=== PATIENT | female | born 1980 | race Caucasian/White ===

== ENCOUNTER 2017-08-20 18:18 | Emergency (ER) | payer BC ==
[2017-08-20] MEDS ORDERED: BENADRYL 50 MG/ML IV ONE (18:46)
[2017-08-20] MEDS ORDERED: Zofran 4 MG/2 ML VIAL IV ONE (18:46)
[2017-08-20] MEDS ORDERED: SUBLIMAZE 100 MCG/2 ML IV ONE (18:46)
[2017-08-20] MEDS ORDERED: SUBLIMAZE 100 MCG/2 ML ONE (18:58)
[2017-08-20] MEDS ORDERED: BENADRYL 50 MG/ML ONE (18:58)
[2017-08-20] MEDS ORDERED: Zofran 4 MG/2 ML VIAL ONE (18:58)
[2017-08-20] MEDS ORDERED: Sodium Chloride 0.9% 1000 ML 1,000 ML ONE (18:58)
[2017-08-20] MEDS ORDERED: Sodium Chloride 0.9% 1000 ML 1,000 ML IV SCH (19:00)
--- NOTE | 2017-08-20 19:00 | ERPHSYRPT ---
- History of Present Illness Time Seen by Provider: 08/20/17 18:45 Historian: patient Exam Limitations: clinical condition Patient Subjective Stated Complaint: RLQ PAIN FOR FOUR DAYS. DIARRHEA INTERMITTENTLY Triage Nursing Assessment: AMBULATED TO ROOM PER SELF. HOLDING RIGHT ABD. SKIN W/D, COLOR NORMAL, RESP EASY. ABD ROUND, SOFT, TENDER RLQ. HYPOACTIVE BOWEL SOUNDS THROUGHOUT. NO DIARRHEA AT PRESENT TIME. Physician History: PATIENT WITH A HISTORY OF PREVIOUS GASTRIC BYPASS, CHOLECYSTECTOMY, COMPLAINS OF WATERY DIARRHEA FOR 4 DAYS, ONSET OF RIGHT FLANK PAIN SINCE LAST NIGHT WHICH HAS PROGRESSED TO RIGHT LOWER ABDOMINAL PAIN, DENIES NAUSEA, EMESIS, FEVER, OR URINARY SYMPTOMS, DYSURIA, FREQUENCY, HEMATURIA. Timing/Duration: day(s) Activities at Onset: none Quality: sharpness, stabbing Abdominal Pain Onset Location: RLQ, flank Pain Radiation: no radiation Severity of Pain-Max: moderate Severity of Pain-Current: moderate Modifying Factors: Improves With: position Associated Symptoms: diarrhea Previous symptoms: no prior history Allergies/Adverse Reactions: No Known Drug Allergies Allergy (Unverified 08/20/17 18:48) Home Medications: KETOROLAC trometh 30 mg Inj [TORAdol 30 mg Injection] 30 mg IJ UD [History] Sertraline HCl 50 mg PO DAILY 08/20/17 [History] Sumatriptan Succinate [Imitrex] 100 mg PO UD 08/20/17 [History] Zonisamide 100 mg PO DAILY 08/20/17 [History] Hx Tetanus, Diphtheria Vaccination/Date Given: No Hx Influenza Vaccination/Date Given: Yes Hx Pneumococcal Vaccination/Date Given: No - Review of Systems Constitutional: No Fever, No Chills Eyes: No Symptoms Ears, Nose, & Throat: No Symptoms Respiratory: No Symptoms, No Cough, No Dyspnea Cardiac: No Chest Pain, No Edema, No Syncope Abdominal/Gastrointestinal: Abdominal Pain, Diarrhea, No Nausea, No Vomiting Genitourinary Symptoms: No Symptoms, Flank Pain, No Dysuria Musculoskeletal: No Symptoms, No Back Pain, No Neck Pain Skin: No Rash Neurological: No Dizziness, No Focal Weakness, No Sensory Changes Psychological: No Symptoms Endocrine: No Symptoms All Other Systems: Reviewed and Negative - Past Medical History Pertinent Past Medical History: Yes Neurological History: Migraines Psycho-Social History: Depression - Past Surgical History Past Surgical History: Yes Gastrointestinal: Cholecystectomy Female Surgical History: Section Other Surgical History: GASTRIC BYPASS - Social History Smoking Status: Never smoker Exposure to second hand smoke: No Drug Use: none Patient Lives Alone: No - Female History Hx Now: No - Nursing Vital Signs Nursing Vital Signs: Initial Vital Signs Temperature 98.9 F 08/20/17 18:27 Pulse Rate 80 08/20/17 18:27 Respiratory Rate 16 08/20/17 18:27 Blood Pressure 146/100 08/20/17 18:27 O2 Sat by Pulse Oximetry 100 08/20/17 18:27 Pain Scale Pain Intensity 8 - Physical Exam General Appearance: mild distress Eye Exam: PERRL/EOMI, eyes nml inspection Ears, Nose, Throat Exam: normal ENT inspection, pharynx normal, moist mucous membranes Neck Exam: normal inspection, non-tender, supple, full range of motion Respiratory Exam: normal breath sounds, lungs clear, No respiratory distress Cardiovascular Exam: regular rate/rhythm, normal heart sounds Gastrointestinal/Abdomen Exam: soft, normal bowel sounds, No tenderness (RIGHT LOWER QUAD TENDERNESS), No mass Back Exam: normal inspection, normal range of motion, CVA tenderness (RIGHT CVA TENDERNESS), No vertebral tenderness Extremity Exam: normal inspection, normal range of motion, pelvis stable Neurologic Exam: alert, oriented x 3, cooperative, normal mood/affect, nml cerebellar function, sensation nml, No motor deficits Skin Exam: normal color, warm, dry SpO2: 100 Oxygen Delivery: Room Air - CT Exams Abdomen/Pelvis CT Interpretation: Discussed w/radiologist, Normal Appendix (GASTRIC BYPASS , MODERATE DIFFUSE FECAL STASIS WITHOUT OBSTRUCTION) Ordered Tests: Active Orders 24 hr Category Date Time Status Clean Catch Urine Specimen STAT Care 08/20/17 18:46 Active IV Insertion STAT Care 08/20/17 18:46 Active ABDOMEN AND PELVIS W CONTRAST [CT] Stat Exams 08/20/17 18:46 Taken AMYLASE Stat Lab 08/20/17 18:50 Completed CBC W DIFF Stat Lab 08/20/17 18:50 Completed CMP Stat Lab 08/20/17 18:50 Completed HCG,QUALITATIVE URINE Stat Lab 08/20/17 18:50 Completed LIPASE Stat Lab 08/20/17 18:50 Completed UA W/RFX UR CULTURE Stat Lab 08/20/17 18:50 Completed Medication Summary Generic Name Dose Route Start Last Admin Trade Name Freq PRN Reason Stop Dose Admin Sodium Chloride 1,000 mls @ 500 mls/hr 08/20/17 19:00 08/20/17 21:24 Sodium Chloride 0.9% 1000 Ml IV 09/19/17 18:59 Infused .Q2H EVER Infusion Discontinued Medications Generic Name Dose Route Start Last Admin Trade Name Freq PRN Reason Stop Dose Admin Diphenhydramine HCl 25 mg 08/20/17 18:46 08/20/17 19:00 Benadryl 50 Mg/Ml IV 08/20/17 18:47 25 mg STAT ONE Administration Diphenhydramine HCl Confirm 08/20/17 18:58 Benadryl 50 Mg/Ml Administered 08/20/17 18:59 Dose 50 mg .ROUTE .STK-MED ONE Fentanyl Citrate 100 mcg 08/20/17 18:46 08/20/17 19:01 Sublimaze 100 Mcg/2 Ml IV 08/20/17 18:47 100 mcg STAT ONE Administration Fentanyl Citrate Confirm 08/20/17 18:58 Sublimaze 100 Mcg/2 Ml Administered 08/20/17 18:59 Dose 100 mcg .ROUTE .STK-MED ONE Ondansetron HCl 4 mg 08/20/17 18:46 08/20/17 19:01 Zofran 4 Mg/2 Ml Vial IV 08/20/17 18:47 4 mg STAT ONE Administration Ondansetron HCl Confirm 08/20/17 18:58 Zofran 4 Mg/2 Ml Vial Administered 08/20/17 18:59 Dose 4 mg .ROUTE .STK-MED ONE Lab/Rad Data: Laboratory Result Diagrams 08/20/17 18:50 08/20/17 18:50 Laboratory Results 08/20/17 08/20/17 08/20/17 Range/Units 18:50 18:50 18:50 WBC (4.0-10.5) K/mm3 RBC (4.1-5.4) M/mm3 Hgb (12.0-16.0) gm/dl Hct (35-47) % MCV (78-100) fl MCH (26-32) pg MCHC (32-36) g/dl RDW (11.5-14.0) % Plt Count (150-450) K/mm3 MPV (6-9.5) fl Gran % (36.0-66.0) % Eos # (Auto) (0-0.5) Absolute Lymphs (auto) (1.0-4.6) Absolute Monos (auto) (0.0-1.3) Lymphocytes % (24.0-44.0) % Monocytes % (0.0-12.0) % Eosinophils % (0.00-5.0) % Basophils % (0.0-0.4) % Absolute Granulocytes (1.4-6.9) Basophils # (0-0.4) Sodium 141 (137-145) mmol/L Potassium 3.9 (3.5-5.1) mmol/L Chloride 110 H (98-107) mmol/L Carbon Dioxide 23 (22-30) mmol/L Anion Gap 12.5 (5-15) MEQ/L BUN 19 H (7-17) mg/dL Creatinine 0.89 (0.52-1.04) mg/dL Estimated GFR > 60.0 ML/MIN Glucose 91 (74-106) mg/dL Calcium 8.9 (8.4-10.2) mg/dL Total Bilirubin 0.20 (0.2-1.3) mg/dL AST 29 (14-36) U/L ALT 29 (0-35) U/L Alkaline Phosphatase 93 (38-126) U/L Serum Total Protein 6.9 (6.3-8.2) g/dL Albumin 4.0 (3.5-5.0) g/dL Amylase 66 (30-110) U/L Lipase 86 (23-300) U/L Ur Collection Type CLEAN CATCH Urine Color YELLOW (YELLOW) Urine Appearance CLEAR (CLEAR) Urine pH 6.5 (5-6) Ur Specific [place] 1.015 (1.005-1.025) Urine Protein NEGATIVE (Negative) Urine Ketones NEGATIVE (NEGATIVE) Urine Blood NEGATIVE (0-5) Alfredo/ul Urine Nitrite NEGATIVE (NEGATIVE) Urine Bilirubin NEGATIVE (NEGATIVE) Urine Urobilinogen NORMAL (0-1) mg/dL Ur Leukocyte Esterase NEGATIVE (NEGATIVE) Urine Culture Reflexed NO (NO) Urine Glucose NEGATIVE (NEGATIVE) mg/dL Urine HCG, Qual NEGATIVE (Negative) Specimen Received 08/20/17 1850 08/20/17 Range/Units 18:50 WBC 8.1 (4.0-10.5) K/mm3 RBC 4.71 (4.1-5.4) M/mm3 Hgb 12.8 (12.0-16.0) gm/dl Hct 39.8 (35-47) % MCV 84.5 (78-100) fl MCH 27.2 (26-32) pg MCHC 32.2 (32-36) g/dl RDW 15.3 H (11.5-14.0) % Plt Count 269 (150-450) K/mm3 MPV 9.5 (6-9.5) fl Gran % 53.4 (36.0-66.0) % Eos # (Auto) 0.08 (0-0.5) Absolute Lymphs (auto) 2.83 (1.0-4.6) Absolute Monos (auto) 0.81 (0.0-1.3) Lymphocytes % 35.0 (24.0-44.0) % Monocytes % 10.0 (0.0-12.0) % Eosinophils % 1.0 (0.00-5.0) % Basophils % 0.6 (0.0-0.4) % Absolute Granulocytes 4.32 (1.4-6.9) Basophils # 0.05 (0-0.4) Sodium (137-145) mmol/L Potassium (3.5-5.1) mmol/L Chloride (98-107) mmol/L Carbon Dioxide (22-30) mmol/L Anion Gap (5-15) MEQ/L BUN (7-17) mg/dL Creatinine (0.52-1.04) mg/dL Estimated GFR ML/MIN Glucose (74-106) mg/dL Calcium (8.4-10.2) mg/dL Total Bilirubin (0.2-1.3) mg/dL AST (14-36) U/L ALT (0-35) U/L Alkaline Phosphatase (38-126) U/L Serum Total Protein (6.3-8.2) g/dL Albumin (3.5-5.0) g/dL Amylase (30-110) U/L Lipase (23-300) U/L Ur Collection Type Urine Color (YELLOW) Urine Appearance (CLEAR) Urine pH (5-6) Ur Specific [place] (1.005-1.025) Urine Protein (Negative) Urine Ketones (NEGATIVE) Urine Blood (0-5) Alfredo/ul Urine Nitrite (NEGATIVE) Urine Bilirubin (NEGATIVE) Urine Urobilinogen (0-1) mg/dL Ur Leukocyte Esterase (NEGATIVE) Urine Culture Reflexed (NO) Urine Glucose (NEGATIVE) mg/dL Urine HCG, Qual (Negative) Specimen Received - Progress Progress: improved Progress Note: 08/20/17 19:02 IV NORMAL SALINE 500ML/HR BENADRYL 25MG, ZOFRAN 4MG, FENTANYL 100MCG IV Counseled pt/family regarding: lab results, diagnosis, need for follow-up, rad results - Departure Time of Disposition: 21:20 Departure Disposition: Home Clinical Impression: ABDOMINAL PAIN Condition: Stable Critical Care Time: No Referrals: EVA SELLERS MD [Primary Care Provider] - Additional Instructions: PERCOGESIC 1 TABLET EVERY 4 HOURS NEEDED FOR PAIN. CONSULT YOUR PRIMARY CARE PROVIDER FOR FOLLOWUP. RETURN TO EMERGENCY FOR INCREASING PAIN DISCOMFORT. Prescriptions: Acetaminophen/Diphenhydramine [Percogesic 325-12.5 mg Tablet] 1 each PO Q4HPRN PRN #15 tablet PRN Reason: Pain
[2017-08-20 19:12] VITALS: O2SAT 100
[2017-08-20 19:12] LABS: BASOPHIL % 0.6 % (0.0-0.4); Basophil (Absolute #) 0.05 (0-0.4); Eosinophil (Absolute #) 0.08 (0-0.5); Granulocyte Absolute (ANC) 4.32 (1.4-6.9); Granulocytes % 53.4 % (36.0-66.0); Hematocrit 39.8 % (35-47); Hemoglobin 12.8 gm/dl (12.0-16.0); Lymphocyte (Absolute #) 2.83 (1.0-4.6); Mean Cell Volume 84.5 fl (78-100); Mean Corpuscular Hemoglobin 27.2 pg (26-32); Mean Corpuscular Hgb Concent. 32.2 g/dl (32-36); Mean Platelet Volume 9.5 fl (6-9.5); Monocyte (Absolute #) 0.81 (0.0-1.3); Platelet Count 269 K/mm3 (150-450); Red Blood Count 4.71 M/mm3 (4.1-5.4); Red Cell Distribution Width 15.3 % (11.5-14.0); White Blood Count 8.1 K/mm3 (4.0-10.5)
[2017-08-20 19:16] LABS: Appearance CLEAR (CLEAR); Bilirubin NEGATIVE (NEGATIVE); Blood NEGATIVE Ery/ul (0-5); Glucose NEGATIVE (NEGATIVE); Ketones NEGATIVE (NEGATIVE); Leukocyte Esterase NEGATIVE (NEGATIVE); Nitrite NEGATIVE (NEGATIVE); Ph 6.5 (5-6); Protein,Urine Dip NEGATIVE (Negative); Specific Gravity 1.015 (1.005-1.025); Urobilinogen NORMAL mg/dL (0-1)
[2017-08-20 19:29] LABS: ALKALINE PHOSPHATASE 93 U/L (38-126); AMYLASE 66 U/L (30-110); ANION GAP 12.5 MEQ/L (5-15); BLOOD UREA NITROGEN 19 mg/dL (7-17); CHLORIDE 110 mmol/L (98-107); Calcium 8.9 mg/dL (8.4-10.2); Carbon Dioxide 23 mmol/L (22-30); Creatinine 1 0.89 mg/dL (0.52-1.04); Glucose 91 mg/dL (74-106); LIPASE 86 U/L (23-300); Potassium 3.9 mmol/L (3.5-5.1); SGOT/AST 29 U/L (14-36); SGPT/ALT 29 U/L (0-35); SODIUM 141 mmol/L (137-145); Total Protein 6.9 g/dL (6.3-8.2)
[2017-08-20 20:15] VITALS: BP 131/89; PULSE 69
--- NOTE | 2017-08-21 09:16 | XRAY ---
Indication: Right lower quadrant pain. Intermittent diarrhea. Multiple contiguous axial images obtained through the abdomen and pelvis using 80 cc Isovue 370 contrast only. Comparison: None Lung bases are clear. Heart is not enlarged. Previous gastric bypass surgery and cholecystectomy. Noncontrasted stomach and bowel loops appear nonobstructed. Normal appendix. Moderate diffuse scattered colonic fecal debris throughout. No free fluid/air. Multiple scattered centimeter/subcentimeter mid abdomen mesenteric nodes, possible adenitis. Remaining liver, pancreas, spleen, adrenal glands, kidneys, ureters, bladder, uterus, and aorta appear unremarkable. No pathologic retroperitoneal lymphadenopathy. Osseous structures intact. Impression: 1. Fecal stasis without obstruction. 2. Small mesenteric nodes, possible adenitis. CT DI 22.66
== END 2017-08-20 22:12 | disposition home or self-care (01) ==
LOC: ED 18:18
DX: R10.31 Right lower quadrant pain (principal); R19.7 Diarrhea, unspecified; Z79.899 Other long term (current) drug therapy
CPT/HCPCS: 36000; 36415; 74177; 80053; 81002; 82150; 83690; 84703; 85025; 96360; 96361; 96374; 96375; 99285; J1200; J2405; J3010

== ENCOUNTER 2017-10-08 08:37 | Day surgery (SDC) | payer BC ==
--- NOTE | 2017-10-06 11:16 | HP ---
DATE OF SURGERY: 10/08/2017 ANTICIPATED PROCEDURE: EGD and colonoscopy. HISTORY OF PRESENT ILLNESS: The patient has right lower quadrant pain and also some epigastric pain. She has had a gastric bypass. She presents for upper and lower endoscopic exam. PAST MEDICAL HISTORY: Seasonal allergies. ALLERGIES: NONE. MEDICATIONS: Flexeril, zonisamide, Zoloft, Toradol, Depo injection. PAST SURGICAL HISTORY: Cholecystectomy, section, gastric bypass. SOCIAL HISTORY: Negative. FAMILY HISTORY: Negative. PHYSICAL EXAMINATION: VITAL SIGNS: Normal. CHEST: Clear. COR: Regular. ABDOMEN: Incisions present. IMPRESSION: PLAN: EGD and colonoscopy.
[~2017-10-08 08:37] MED LIST: Lactated Ringers 1,000 ML IV SCH
[2017-10-08] MEDS ORDERED: DIPRIVAN 200 MG/20 ML IV ONE (08:38)
[2017-10-08] MEDS ORDERED: Lactated Ringers 1,000 ML IV ONE ×2 (09:03→14:10)
--- NOTE | 2017-10-08 14:12 | OP ---
SURGERY DATE/TIME: 10/08/2017 1251 PREOPERATIVE DIAGNOSIS: Epigastric pain, right lower quadrant pain. POSTOPERATIVE DIAGNOSES: 1) Grade II over III gastroesophageal reflux disease with a previous gastric bypass with no marginal ulceration. 2) Colonoscopy complete to cecum with a very limited bowel prep of 3 or 4 over 9 with a very redundant colon. PROCEDURES: 1) EGD. 2) Colonoscopy complete to cecum. SURGEON: Ahmet Jackson M.D. ANESTHESIA: MAC. COMPLICATIONS: None. CONDITION: Stable. INDICATION: The patient has epigastric pain, right lower quadrant pain. DESCRIPTION OF PROCEDURE: She is taken to endoscopy. Scope introduced. Esophagus normal down to gastroesophageal junction. Grade 2/3 gastroesophageal reflux disease. The pouch was satisfactory. The rim of the anastomosis satisfactory. Efferent loop cannulated 20 cm without difficulty. The scope is then withdrawn. Anal digital examination is satisfactory. Scope advanced into cecum. Very redundant colon with the diameter of the colon than being better than 4 inches almost continuously throughout. There were lots of stool with prep only being 3 or 4 so this exam was certainly limited. Despite this there were no gross lesions noted and I believe the patient is having her pain from constipation, obstipation with irritable bowel syndrome and a very redundant colon.
[2017-10-08 14:32] VITALS: BP 138/94; PULSE 66; O2SAT 97
== END 2017-10-08 14:42 | disposition home or self-care (01) ==
LOC: SDC 08:37
PROVIDERS: ATTEND Surgery
DX: K21.9 Gastro-esophageal reflux disease without esophagitis (principal); R10.13 Epigastric pain; R10.31 Right lower quadrant pain; Z98.84 Bariatric surgery status
CPT/HCPCS: 84703; 94250; J2704